=== PATIENT | female | born 1960 | race Caucasian/White ===

== ENCOUNTER 2019-07-26 17:59 | Emergency (ER) | payer MEDICAID, MEDICARE ==
[2019-07-26 19:18] LABS: BASOPHILS % (AUTO) 0.4 %; EOSINOPHILS # (AUTO) 0.1 10^3/uL (0.0-0.7); EOSINOPHILS % (AUTO) 0.9 %; HGB - HEMOGLOBIN 13.7 g/dL (12.0-16.0); LYMPHOCYTES # (AUTO) 1.8 10^3/uL (1.5-3.5); LYMPHOCYTES % (AUTO) 22.2 %; MEAN CORPUSCULAR HEMOGLOBIN 31.9 pg (27.0-31.0); MEAN CORPUSCULAR HGB CONC 32.4 g/dL (32.0-36.0); MEAN CORPUSCULAR VOLUME 98.6 fL (81.0-99.0); MEAN PLATELET VOLUME 9.5 fL (7.9-10.8); MONOCYTES # (AUTO) 0.5 10^3/uL (0.0-1.0); MONOCYTES % (AUTO) 5.6 %; NEUTROPHILS # (AUTO) 5.7 10^3/uL (1.5-6.6); NEUTROPHILS % (AUTO) 70.7 %; PLT - PLATELET COUNT 172 10^3/uL (130-450); RED BLOOD COUNT 4.29 10^6/uL (4.20-5.40); RED CELL DISTRIBUTION WIDTH 12.8 % (12.0-15.0); WHITE BLOOD COUNT 8.1 x10^3/uL (4.8-10.8)
[2019-07-26 19:34] LABS: ALBUMIN 3.5 g/dL (3.2-5.5); ALBUMIN/GLOBULIN RATIO 0.9 (1.0-2.2); BILIRUBIN,TOTAL 1.5 mg/dL (0.2-1.0); CREATININE 0.6 mg/dL (0.4-1.0); TOTAL PROTEIN 7.6 g/dL (6.7-8.2)
[2019-07-26] MEDS ORDERED: ONDANSETRON 4 MG/2 ML VIAL IVP STA ×2 (20:24→21:32)
[2019-07-26] MEDS ORDERED: cefTRIAXone 1 GM VIAL IVP STA (20:24)
[2019-07-26] MEDS ORDERED: DIPHENOX/ATROPINE 2.5/0.025 MG TABLET PO STA (20:24)
[2019-07-26] MEDS ORDERED: oxyCODONE 5 MG TABLET PO STA (20:25)
[2019-07-26 20:53] LABS: BILIRUBIN,URINE NEGATIVE (NEGATIVE); GLUCOSE, URINE (UA) NEGATIVE (NEGATIVE); KETONES,URINE (UA) 15 mg/dL (NEGATIVE); LEUKOCYTE ESTERASE, URINE SMALL (NEGATIVE); NITRITE,URINE POSITIVE (NEGATIVE); OCCULT BLOOD,URINE MODERATE (NEGATIVE); PROTEIN,URINE TRACE mg/dL (NEGATIVE); UROBILINOGEN,URINE 1 (NORMAL) E.U./dL (NORMAL)
[2019-07-26 20:56] LABS: BACTERIA,URINE Many /HPF (None Seen); CLARITY,URINE CLOUDY (CLEAR); SQUAMOUS EPITHELIAL CELL,UR MANY Squamous (<= Few)
--- NOTE | 2019-07-26 20:57 | ED Physician Documentation ---
PD HPI NVD - Stated complaint Stated Complaint: vomiting, diarrhea, tooth pain - Chief complaint Chief Complaint: Abd Pain - History obtained from History obtained from: Patient - History of Present Illness Timing - onset: Last night Timing - details: Abrupt onset Pain level now: 8 Associated symptoms: No: Fever Recently seen: Not recently seen - Additonal information Additional information: c/o nausea, vomiting, diarrhea since last night. Patient says she was pushing her tongue against a tooth last night and noticed the tooth was loose, and subsequently the tooth "fell out" (per patient) along with a "screw" that had been placed when she had a root canal performed on that tooth. She c/o pain at the site. Review of Systems Constitutional: denies: Fever, Chills, Sweats Throat: reports: Dental pain / toothache Cardiac: reports: Reviewed and negative Respiratory: reports: Reviewed and negative GI: reports: Nausea, Vomiting, Diarrhea. 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 - Present Medications Home Medications: Ambulatory Orders Medication Instructions Recorded Confirmed Citalopram [CeleXA] 20 mg PO DAILY 06/09/13 07/26/19 Propranolol [Inderal] 10 mg PO BID 06/09/13 07/26/19 Cephalexin [Keflex] 500 mg PO Q6H #20 capsule 07/26/19 Diphenoxylate/Atropine [Lomotil] 1 each PO QID PRN #10 tablet 07/26/19 Ondansetron Odt [Zofran] 4 mg TL Q6H PRN #10 tablet 07/26/19 traMADol [Ultram] 50 mg PO Q4-6H PRN #14 tablet 07/26/19 - Allergies Allergies/Adverse Reactions: Allergies Allergy/AdvReac Type Severity Reaction Status Date / Time No Known Drug Allergies Allergy Verified 06/09/13 17:26 - Social History Does the pt smoke?: Yes Smoking Status: Current every day smoker Does the pt drink ETOH?: Yes Does the pt have substance abuse?: No - Immunizations Immunizations are current?: Yes PD ED PE NORMAL - Vitals Vital signs reviewed: Yes - General General: Alert and oriented X 3, No acute distress, Well developed/nourished - HEENT HEENT: Moist mucous membranes - Neck Neck: Supple, no meningeal sign - Cardiac Cardiac: RRR, No murmur - Respiratory Respiratory: No respiratory distress, Clear bilaterally - Abdomen Abdomen: Normal bowel sounds, Soft, Non tender - Back Back: No CVA TTP - Derm Derm: Normal color, Warm and dry PD ED PE EXPANDED - HEENT HEENT Visual: 1 - deformity (tooth is absent (as are bilateral medial and right lateral incisors (maxillary)). there is no erythema, no gingival swelling, no discharge, no fluctuance.) Results - Vitals Vitals: Vital Signs - 24 hr 07/26/19 07/26/19 07/26/19 18:12 19:57 20:40 Temperature 36.8 C Heart Rate 65 67 67 Respiratory 18 18 18 Rate Blood Pressure 138/67 H 145/71 H 147/71 H O2 Saturation 98 100 98 07/26/19 21:06 Temperature Heart Rate 69 Respiratory 18 Rate Blood Pressure 145/69 H O2 Saturation 99 Oxygen O2 Source [With Activity] Room air O2 Source Room air - Labs Labs: Laboratory Tests 07/26/19 07/26/19 07/26/19 19:15 19:15 20:35 WBC 8.1 RBC 4.29 Hgb 13.7 Hct 42.3 MCV 98.6 MCH 31.9 H MCHC 32.4 RDW 12.8 Plt Count 172 MPV 9.5 Neut # (Auto) 5.7 Lymph # (Auto) 1.8 [place] # (Auto) 0.5 Eos # (Auto) 0.1 Baso # (Auto) 0.0 Absolute Nucleated RBC 0.00 Nucleated RBC % 0.0 Sodium 141 Potassium 4.0 Chloride 104 Carbon Dioxide 27 Anion Gap 10.0 BUN 13 Creatinine 0.6 Estimated GFR (MDRD) 102 Glucose 102 H Calcium 9.0 Total Bilirubin 1.5 H AST 32 ALT 17 Alkaline Phosphatase 72 Total Protein 7.6 Albumin 3.5 Globulin 4.1 Albumin/Globulin Ratio 0.9 L Lipase 48 Urine Color YELLOW Urine Clarity CLOUDY Urine pH 6.0 Ur Specific [place] 1.020 Urine Protein TRACE Urine Glucose (UA) NEGATIVE Urine Ketones 15 H Urine Occult Blood MODERATE H Urine Nitrite POSITIVE H Urine Bilirubin NEGATIVE Urine Urobilinogen 1 (NORMAL) Ur Leukocyte Esterase SMALL H Urine RBC 6-10 H Urine WBC >25 H Ur Squamous Epith Cells MANY Squamous H Urine Bacteria Many H Ur Microscopic Review INDICATED Urine Culture Comments NOT INDICATED PD MEDICAL DECISION MAKING - ED course Complexity details: reviewed old records, reviewed results, re-evaluated patient, considered differential, d/w patient Departure - Departure Disposition: 01 Home, Self Care Clinical Impression: Vomiting and diarrhea Condition: Good Instructions: ED Diet Vomiting Diarrhea, ED UTI Cystitis Female, ED Vomiting Diarrhea Nonspecific Ad Follow-Up: JESSICA RAY ARNP [Primary Care Provider] - Prescriptions: Cephalexin [Keflex] 500 mg PO Q6H #20 capsule Diphenoxylate/Atropine [Lomotil] 1 each PO QID PRN #10 tablet PRN Reason: Diarrhea Ondansetron Odt [Zofran] 4 mg TL Q6H PRN #10 tablet PRN Reason: Nausea / Vomiting traMADol [Ultram] 50 mg PO Q4-6H PRN #14 tablet PRN Reason: Pain Discharge Date/Time: 07/26/19 21:54
[2019-07-26] MEDS ORDERED: KETOROLAC 30 MG/ML VIAL IVP STA (20:59)
[2019-07-26 21:07] VITALS: BP 145/69
[2019-07-26] MEDS ORDERED: traMADol 50 MG TABLET PO STA (21:32)
== END 2019-07-26 21:54 | disposition home or self-care (01) ==
LOC: ED 17:59
DX: R11.2 Nausea with vomiting, unspecified (principal); R19.7 Diarrhea, unspecified; K08.89 Other specified disorders of teeth and supporting structures; I10 Essential (primary) hypertension; F17.200 Nicotine dependence, unspecified, uncomplicated
CPT/HCPCS: 36415; 80053; 81001; 83690; 85025; 96374; 96375; 99283; 99284; A9270; 81003; 87086

== ENCOUNTER 2019-07-31 14:04 | Outpatient (CLI) | payer MEDICARE ==
--- NOTE | 2019-07-31 17:16 | Ultrasound Report ---
Reason: ABDOMINAL PAIN, SHORTNESS OF BREATH Procedure Date: 07/31/2019 Accession Number: [id number] / [id number] Procedure: US - Abdomen Complete CPT Code: FULL RESULT: EXAM: ABDOMEN ULTRASOUND EXAM DATE: 07/31/2019 02:49 PM. CLINICAL HISTORY: Abdominal pain, shortness of breath. COMPARISON: 06/10/2013. TECHNIQUE: Real-time scanning was performed with static images obtained. FINDINGS: Liver: The liver parenchyma is diffusely heterogeneous with surface nodularity noted consistent with cirrhosis. No focal masses appreciated. The right lobe measures 15.0 cm. Main portal vein flow: Hepatofugal. Gallbladder: Multiple gallbladder stones are identified but appear non-mobile and measure up to 2 cm in diameter. Negative sonographic [place] sign. Gallbladder wall is normal in thickness. Biliary System: Common bile duct measures 4 mm. No intrahepatic or extrahepatic ductal dilatation. Pancreas: Obscured by bowel gas. Kidneys: Right: 9.0 cm longitudinally. Normal. No contour-deforming mass, stones, or hydronephrosis. Left: 10.5 cm longitudinally. Normal. No contour-deforming mass, stones, or hydronephrosis. Spleen: 8.5 cm. Normal in size and echotexture. Aorta and Inferior Vena Cava: Unremarkable. Other: No ascites. IMPRESSION: 1. Several small gallbladder stones but without evidence of acute cholecystitis similar to prior exam. 2. Heterogeneous nodular liver consistent with cirrhosis. Hepatofugal portal venous flow present consistent with marked portal venous hypertension as before. RADIA
--- NOTE | 2019-08-01 23:59 | XRAY Report ---
Reason: ABDOMINAL PAIN, SHORTNESS OF BREATH Procedure Date: 07/31/2019 Accession Number: [id number] / [id number] Procedure: XR - Chest 2 View X-Ray CPT Code: 04783 FULL RESULT: EXAM: CHEST RADIOGRAPHY EXAM DATE: 07/31/2019 03:20 PM. CLINICAL HISTORY: ABDOMINAL PAIN, SHORTNESS OF BREATH. COMPARISON: 04/08/2015 1:26 PM. TECHNIQUE: 2 views. FINDINGS: Lungs/Pleura: No consolidation, airspace disease, pleural effusion or pneumothorax. Mediastinum: Borderline cardiomegaly. IMPRESSION: No acute findings are seen. See above. RADIA
== END 2019-07-31 14:05 | disposition home or self-care (01) ==
LOC: DI 14:04
PROVIDERS: ATTEND Family Medicine
DX: K80.20 Calculus of gallbladder without cholecystitis without obstruction (principal); R06.02 Shortness of breath
CPT/HCPCS: 71046; 76700

== ENCOUNTER 2019-08-02 09:56 | Emergency (ER) | payer MEDICARE ==
--- NOTE | 2019-08-02 11:08 | ED Physician Documentation ---
PD HPI ABD PAIN - Stated complaint Stated Complaint: AB PX - Chief complaint Chief Complaint: Abd Pain - History obtained from History obtained from: Patient, Family - History of Present Illness Timing - onset: How many weeks ago (1.5) Timing - duration: Weeks (1.5-2) Timing - details: Gradual onset, Still present, Constant. No: Intermittant Severity Comments: moderate Quality: Cramping, Aching. No: Sharp, Dull, Stabbing, Throbbing, Indigestion, Fullness/distended Location: Epigastric. No: Suprapubic Radiation: Other (no radiation) Improved by: Other (nothing) Worsened by: Other (nothing) Associated symptoms: Nausea. No: Fever, Vomiting, Hematemesis, Diarrhea, Constipation, Melena, Hematochezia, Dysuria, Hematuria, Chest pain, Dizzy, Near syncope / syncope Similar symptoms before: Diagnosis (she was seen for this a week ago and diagnosed with a UTI, at that time was given keflex which she finished 2 days ago but symptoms persisted) Recently seen: Emergency Dept - Treatment prior to arrival Treatment prior to arrival: nothing today Review of Systems Ten Systems: 10 systems reviewed and negative Constitutional: denies: Fever, Chills Cardiac: denies: Chest pain / pressure Respiratory: denies: Dyspnea GI: reports: Abdominal Pain, Nausea. 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 - Present Medications Home Medications: Ambulatory Orders Medication Instructions Recorded Confirmed Citalopram [CeleXA] 20 mg PO DAILY 06/09/13 07/26/19 Propranolol [Inderal] 10 mg PO BID 06/09/13 07/26/19 Cephalexin [Keflex] 500 mg PO Q6H #20 capsule 07/26/19 Diphenoxylate/Atropine [Lomotil] 1 each PO QID PRN #10 tablet 07/26/19 Ondansetron Odt [Zofran] 4 mg TL Q6H PRN #10 tablet 07/26/19 traMADol [Ultram] 50 mg PO Q4-6H PRN #14 tablet 07/26/19 traMADol [Ultram] 50 mg PO Q4-6H #20 tablet 08/02/19 - Allergies Allergies/Adverse Reactions: Allergies Allergy/AdvReac Type Severity Reaction Status Date / Time No Known Drug Allergies Allergy Verified 08/02/19 10:03 - Social History Does the pt smoke?: Yes Smoking Status: Current every day smoker Does the pt drink ETOH?: Yes Does the pt have substance abuse?: No - Immunizations Immunizations are current?: Yes PD ED PE NORMAL - Vitals Vital signs reviewed: Yes - General General: Alert and oriented X 3, No acute distress, Well developed/nourished - HEENT HEENT: Atraumatic, Moist mucous membranes, Pharynx benign - Neck Neck: Supple, no meningeal sign, No JVD - Cardiac Cardiac: RRR, No murmur, No gallop, No rub - Respiratory Respiratory: No respiratory distress, Clear bilaterally - Abdomen Abdomen: Soft, Non distended, Other (mild epigastric tenderness, no suprapubic tenderness, no CVA tenderness ) - Female Female : Deferred - Rectal Rectal: Deferred - Back Back: No CVA TTP - Derm Derm: Normal color, Warm and dry, No rash - Extremities Extremities: No deformity, No edema, No calf tenderness / cord - Neuro Neuro: Alert and oriented X 3 Eye Opening: Spontaneous Motor: Obeys Commands Verbal: Oriented GCS Score: 15 - Psych Psych: Normal mood, Normal affect Results - Vitals Vitals: Vital Signs - 24 hr 08/02/19 08/02/19 08/02/19 10:00 11:07 12:11 Temperature 37.3 C 37.2 C Heart Rate 53 L 65 57 L Respiratory 15 16 16 Rate Blood Pressure 120/46 L 131/86 H 122/63 O2 Saturation 95 100 97 Oxygen O2 Source [With Activity] Room air O2 Source Room air - Labs Labs: Laboratory Tests 08/02/19 08/02/19 08/02/19 11:00 11:16 11:16 WBC 6.7 RBC 3.29 L Hgb 10.6 L Hct 32.5 L MCV 98.8 MCH 32.2 H MCHC 32.6 RDW 13.4 Plt Count 197 MPV 9.2 Neut # (Auto) 4.3 Lymph # (Auto) 1.6 [place] # (Auto) 0.6 Eos # (Auto) 0.2 Baso # (Auto) 0.0 Absolute Nucleated RBC 0.00 Nucleated RBC % 0.0 Sodium 140 Potassium 3.7 Chloride 104 Carbon Dioxide 26 Anion Gap 10.0 BUN 6 Creatinine 0.7 Estimated GFR (MDRD) 85 L Glucose 100 Calcium 8.5 Total Bilirubin 0.9 AST 23 ALT 13 Alkaline Phosphatase 49 Total Protein 6.3 L Albumin 2.9 L Globulin 3.4 Albumin/Globulin Ratio 0.9 L Lipase 31 Urine Color YELLOW Urine Clarity CLEAR Urine pH 8.5 H Ur Specific [place] 1.015 Urine Protein NEGATIVE Urine Glucose (UA) NEGATIVE Urine Ketones NEGATIVE Urine Occult Blood NEGATIVE Urine Nitrite NEGATIVE Urine Bilirubin NEGATIVE Urine Urobilinogen 4 H Ur Leukocyte Esterase NEGATIVE Ur Microscopic Review NOT INDICATED Urine Culture Comments NOT INDICATED Procedures - Bedside sono Bedside sono by EMP: US of RUQ performed by me. Pt has a large gallstone with shadowing but no rush cholecystic fluid, negative sonographic murphys and a GB wall of 0.28cm thus no signs of cholecystitis PD MEDICAL DECISION MAKING - ED course Complexity details: reviewed old records, reviewed results, re-evaluated patient, considered differential, d/w patient, d/w family ED course: ddx- abdominal pain, UTI, pancreatitis, cholelithiasis, cholecystitis, AAA 59 y/o F with several weeks of upper abdominal pain not like prior UTIs. Treated for UTI last week and still has pain. Her her UA suggests UTI is resolved.0 Pain located in epigastric region. Labs wnl, no leukocytosis, stable LFTs and negative lipase, but does have gallstones on exam thus suspect this is cholelithiasis. Pt was given analgesics in the ED and symptoms improved. She is tolerating pO. And has had no vomiting or fever. I feel she is stable for discharge with outpt f/u. Discussed return precautions here iwth pt and family. Departure - Departure Disposition: 01 Home, Self Care Clinical Impression: Cholelithiasis Qualifiers: Cholelithiasis location: gallbladder Cholecystitis presence: without cholecystitis Biliary obstruction: without biliary obstruction Qualified Code(s): K80.20 - Calculus of gallbladder without cholecystitis without obstruction Condition: Stable Record reviewed to determine appropriate education?: Yes Instructions: Gallstones Dc Follow-Up: TROY COLORADO MD [Provider Admit Priv/Credential] - Prescriptions: traMADol [Ultram] 50 mg PO Q4-6H #20 tablet Comments: You were evaluated in the ED today for abdominal pain in your upper abdomen. Your ultrasound result is consistent with cholelithiasis or gallstones. You can manage this by eating a low fat diet and taking nausea medicine and your tramadol as needed for pain. However you should follow up with your PCP or a surgeon to discuss managing this medically versus having your gallbladder taken out with surgery. Your UTI here has resolved. If you develop fever or severe pain or vomiting please return to the ED. Discharge Date/Time: 08/02/19 12:17
[2019-08-02] MEDS ORDERED: fentaNYL 100 MCG/2 ML VIAL IVP STA (11:09)
[2019-08-02 11:10] LABS: BILIRUBIN,URINE NEGATIVE (NEGATIVE); GLUCOSE, URINE (UA) NEGATIVE (NEGATIVE); KETONES,URINE (UA) NEGATIVE (NEGATIVE); LEUKOCYTE ESTERASE, URINE NEGATIVE (NEGATIVE); NITRITE,URINE NEGATIVE (NEGATIVE); OCCULT BLOOD,URINE NEGATIVE (NEGATIVE); PH,URINE 8.5 PH (5.0-7.5); PROTEIN,URINE NEGATIVE (NEGATIVE); UROBILINOGEN,URINE 4 E.U./dL (NORMAL)
[2019-08-02] MEDS ORDERED: ONDANSETRON 4 MG/2 ML VIAL IVP STA (11:10)
[2019-08-02 11:11] LABS: CLARITY,URINE CLEAR (CLEAR)
[2019-08-02 11:22] LABS: BASOPHILS % (AUTO) 0.6 %; EOSINOPHILS # (AUTO) 0.2 10^3/uL (0.0-0.7); EOSINOPHILS % (AUTO) 2.2 %; HGB - HEMOGLOBIN 10.6 g/dL (12.0-16.0); LYMPHOCYTES # (AUTO) 1.6 10^3/uL (1.5-3.5); LYMPHOCYTES % (AUTO) 24.1 %; MEAN CORPUSCULAR HEMOGLOBIN 32.2 pg (27.0-31.0); MEAN CORPUSCULAR HGB CONC 32.6 g/dL (32.0-36.0); MEAN CORPUSCULAR VOLUME 98.8 fL (81.0-99.0); MEAN PLATELET VOLUME 9.2 fL (7.9-10.8); MONOCYTES # (AUTO) 0.6 10^3/uL (0.0-1.0); NEUTROPHILS # (AUTO) 4.3 10^3/uL (1.5-6.6); NEUTROPHILS % (AUTO) 63.8 %; PLT - PLATELET COUNT 197 10^3/uL (130-450); RED BLOOD COUNT 3.29 10^6/uL (4.20-5.40); RED CELL DISTRIBUTION WIDTH 13.4 % (12.0-15.0); WHITE BLOOD COUNT 6.7 x10^3/uL (4.8-10.8)
[2019-08-02 11:36] LABS: ALBUMIN 2.9 g/dL (3.2-5.5); ALBUMIN/GLOBULIN RATIO 0.9 (1.0-2.2); BILIRUBIN,TOTAL 0.9 mg/dL (0.2-1.0); CALCIUM 8.5 mg/dL (8.5-10.3); CREATININE 0.7 mg/dL (0.4-1.0); TOTAL PROTEIN 6.3 g/dL (6.7-8.2)
[2019-08-02 12:13] VITALS: BP 122/63
== END 2019-08-02 12:17 | disposition home or self-care (01) ==
LOC: ED 09:56
DX: K80.20 Calculus of gallbladder without cholecystitis without obstruction (principal); I10 Essential (primary) hypertension; F17.200 Nicotine dependence, unspecified, uncomplicated
CPT/HCPCS: 36415; 80053; 81001; 81003; 83690; 85025; 87086; 96374; 99284

== ENCOUNTER 2021-11-22 12:18 | Outpatient (CLI) | payer MEDICARE ==
[2021-11-22 15:12] LABS: BASOPHILS # (AUTO) 0.1 10^3/uL (0.0-0.1); BASOPHILS % (AUTO) 0.9 %; EOSINOPHILS # (AUTO) 0.2 10^3/uL (0.0-0.7); HCT - HEMATOCRIT 39.5 % (37.0-47.0); HGB - HEMOGLOBIN 12.8 g/dL (12.0-16.0); LYMPHOCYTES # (AUTO) 2.3 10^3/uL (1.5-3.5); MEAN CORPUSCULAR HEMOGLOBIN 32.7 pg (27.0-31.0); MEAN CORPUSCULAR HGB CONC 32.4 g/dL (32.0-36.0); MEAN PLATELET VOLUME 9.7 fL (7.9-10.8); MONOCYTES # (AUTO) 0.4 10^3/uL (0.0-1.0); MONOCYTES % (AUTO) 7.6 %; NEUTROPHILS # (AUTO) 2.3 10^3/uL (1.5-6.6); NEUTROPHILS % (AUTO) 43.3 %; PLT - PLATELET COUNT 175 10^3/uL (130-450); RED BLOOD COUNT 3.91 10^6/uL (4.20-5.40); RED CELL DISTRIBUTION WIDTH 12.6 % (12.0-15.0); WHITE BLOOD COUNT 5.3 x10^3/uL (4.8-10.8)
[2021-11-22 15:49] LABS: ALBUMIN/GLOBULIN RATIO 0.8 (1.0-2.2); ALKALINE PHOSPHATASE 54 IU/L (42-121); ALT ALANINE AMINOTRANSFERASE 13 IU/L (10-60); AST ASPARTATE AMINOTRANSFERASE 22 IU/L (10-42); BUN - BLOOD UREA NITROGEN 12 mg/dL (6-20); CALCIUM 8.9 mg/dL (8.5-10.3); CARBON DIOXIDE - CO2 28 mmol/L (21-32); CHLORIDE 105 mmol/L (101-111); CHOL/HDL RATIO 4.1 (<4.4); CHOLESTEROL 150 mg/dL; CREATININE 0.6 mg/dL (0.4-1.0); GFR - MDRD 101 (>89); GLUCOSE 96 mg/dL (70-100); HDL CHOLESTEROL 37 mg/dL; POTASSIUM 3.8 mmol/L (3.5-5.0); SODIUM 142 mmol/L (135-145); TOTAL PROTEIN 6.6 g/dL (6.7-8.2); TRIGLYCERIDES 37 mg/dL
[2021-11-22 16:25] LABS: THYROID STIMULATING HORMONE 2.69 uIU/mL (0.34-5.60)
== END 2021-11-22 12:19 | disposition home or self-care (01) ==
LOC: LAB.S 12:18
PROVIDERS: ATTEND Registered Nurse
DX: K80.20 Calculus of gallbladder without cholecystitis without obstruction (principal); E78.5 Hyperlipidemia, unspecified; I10 Essential (primary) hypertension; K74.60 Unspecified cirrhosis of liver; F10.20 Alcohol dependence, uncomplicated; Z13.220 Encounter for screening for lipoid disorders; F41.9 Anxiety disorder, unspecified; F32.A Depression, unspecified
CPT/HCPCS: 36415; 80053; 80061; 83721; 84443; 85025

== ENCOUNTER 2023-02-14 16:28 | Outpatient (CLI) | payer MEDICARE, MEDICAID ==
[2023-02-14 17:11] LABS: BASOPHILS % (AUTO) 0.7 %; EOSINOPHILS # (AUTO) 0.2 10^3/uL (0.0-0.7); EOSINOPHILS % (AUTO) 3.5 %; HGB - HEMOGLOBIN 12.9 g/dL (12.0-16.0); LYMPHOCYTES # (AUTO) 2.2 10^3/uL (1.5-3.5); LYMPHOCYTES % (AUTO) 40.7 %; MEAN CORPUSCULAR HEMOGLOBIN 31.8 pg (27.0-31.0); MEAN CORPUSCULAR HGB CONC 33.1 g/dL (32.0-36.0); MEAN CORPUSCULAR VOLUME 96.1 fL (81.0-99.0); MEAN PLATELET VOLUME 9.3 fL (7.9-10.8); MONOCYTES # (AUTO) 0.5 10^3/uL (0.0-1.0); MONOCYTES % (AUTO) 8.7 %; NEUTROPHILS # (AUTO) 2.5 10^3/uL (1.5-6.6); NEUTROPHILS % (AUTO) 46.2 %; PLT - PLATELET COUNT 172 10^3/uL (130-450); RED BLOOD COUNT 4.06 10^6/uL (4.20-5.40); RED CELL DISTRIBUTION WIDTH 13.7 % (12.0-15.0); WHITE BLOOD COUNT 5.4 x10^3/uL (4.8-10.8)
[2023-02-14 17:27] LABS: ALBUMIN 3.3 g/dL (3.2-5.5); ALBUMIN/GLOBULIN RATIO 0.9 (1.0-2.2); ALKALINE PHOSPHATASE 58 IU/L (42-121); ALT ALANINE AMINOTRANSFERASE 16 IU/L (10-60); AST ASPARTATE AMINOTRANSFERASE 24 IU/L (10-42); BILIRUBIN,TOTAL 0.6 mg/dL (0.2-1.0); BUN - BLOOD UREA NITROGEN 17 mg/dL (6-20); CALCIUM 8.8 mg/dL (8.5-10.3); CARBON DIOXIDE - CO2 27 mmol/L (21-32); CHLORIDE 106 mmol/L (101-111); CHOL/HDL RATIO 3.3 (<4.4); CHOLESTEROL 149 mg/dL; CREATININE 0.5 mg/dL (0.4-1.0); GFR - MDRD 124 (>89); GLUCOSE 91 mg/dL (70-100); HDL CHOLESTEROL 45 mg/dL; POTASSIUM 4.5 mmol/L (3.5-5.0); SODIUM 140 mmol/L (135-145); TRIGLYCERIDES 37 mg/dL
[2023-02-14 17:37] LABS: THYROID STIMULATING HORMONE 1.87 uIU/mL (0.34-5.60)
== END 2023-02-14 16:29 | disposition home or self-care (01) ==
LOC: LAB 16:28
PROVIDERS: ATTEND Registered Nurse
DX: I10 Essential (primary) hypertension (principal); E78.5 Hyperlipidemia, unspecified
CPT/HCPCS: 36415; 80053; 80061; 83721; 84443; 85025